=== PATIENT | female | born 1935 | race Caucasian/White ===

== ENCOUNTER 2017-07-30 11:44 | Outpatient (CLI) | END 2017-07-30 11:45 | disposition short-term general hospital (02) | LOC: AMBL 11:44 | PROVIDERS: ATTEND Internal Medicine | DX: M79.673 Pain in unspecified foot (principal) ==

== ENCOUNTER 2017-11-12 00:01 | Outpatient (POV) | payer OTHER | END 2017-11-12 17:00 | LOC: OUTPT 00:01 | PROVIDERS: ATTEND Otolaryngology | DX: H91.90 Unspecified hearing loss, unspecified ear (principal) ==

== ENCOUNTER 2017-12-05 15:50 | Outpatient (CLI) | END 2017-12-05 15:51 | disposition home or self-care (01) | LOC: AMBL 15:50 | PROVIDERS: ATTEND Internal Medicine | DX: R05 Cough (principal); R06.02 Shortness of breath; R09.89 Other specified symptoms and signs involving the circulatory and respiratory systems; Z98.890 Other specified postprocedural states ==